=== PATIENT | female | born 1975 | race Hispanic/Latino ===

== ENCOUNTER 2016-12-28 06:03 | Day surgery (SDC) | payer OTHER ==
[~2016-12-28 06:03] MED LIST: MARCAINE 0.25% INFILTRATI ONE; PEPCID IV NR; VERSED IV NR
[2016-12-28] MEDS ORDERED: NACL BACTERIOSTATIC INFILTRATI ONE (06:39)
--- NOTE | 2016-12-28 06:58 | Anesthesia Day of Surgery ---
Anesthesia Day of Surgery - Day of Surgery Patient Examined: Yes Patient H&P Reviewed: Yes Patient is NPO: Yes
--- NOTE | 2016-12-28 06:58 | Anesthesia Consultation ---
Anesthesia Consult and Med Hx Date of service: 12/28/16 - Airway Anesthetic Teeth Evaluation: Partials ROM Head & Neck: Adequate Mental/Hyoid Distance: Adequate Mallampati Class: Class II Intubation Access Assessment: Probably Good - Pulmonary Exam CTA: Yes - Cardiac Exam Cardiac Exam: RRR - Pre-Operative Health Status ASA Pre-Surgery Classification: ASA2 Proposed Anesthetic Plan: General - Pulmonary Hx Smoking: No (denies) Hx Asthma: No COPD: No Hx Pneumonia: No - Cardiovascular System Hx Hypertension: No Hx Coronary Artery Disease: No Hx Heart Attack/AMI: No Hx Angina: No Hx Cardia Arrhythmia: No Hx Heart Murmur: No - Central Nervous System Hx Seizures: No CVA: No Hx Psychiatric Problems: Yes - Gastrointestinal Hx Gastroesophageal Reflux Disease: Yes (doesn't treat. reports this is why her teeth are so bad) - Endocrine Hx End Stage Renal Disease: No Hx Liver Disease: No Hx Non-Insulin Dependent Diabetes: No Hx Thyroid Disease: Yes (pt uncertain if over or under active. doesn't see a doctor) - Hematic Hx Anemia: Yes - Other Systems Hx Alcohol Use: Yes (occas) Hx Cancer: No
[2016-12-28] MEDS ORDERED: PERCOCET 5/325 PO PRN (07:00)
[2016-12-28] MEDS ORDERED: VERSED IV NR (07:00)
[2016-12-28] MEDS ORDERED: PEPCID IV NR (07:00)
[2016-12-28] MEDS ORDERED: ZOFRAN IV PRN (07:00)
[2016-12-28] MEDS: NACL 0.9% 1000 ML 1,000 ML IV SCH ×2 (07:18→09:46)
[2016-12-28] MEDS ORDERED: MARCAINE 0.25% INFILTRATI ONE ×2 (07:23→08:20)
[2016-12-28] MEDS ORDERED: SUBLIMAZE ONE (07:29)
[2016-12-28] MEDS ORDERED: DIPRIVAN 10 MG/ML IV ONE (07:29)
[2016-12-28] MEDS ORDERED: XYLOCAINE MPF 2% ONE (07:32)
[2016-12-28] MEDS ORDERED: ROBINUL ONE ×2 (07:33)
[2016-12-28] MEDS ORDERED: NEOSTIGMINE ONE (07:34)
[2016-12-28] MEDS ORDERED: DECADRON ONE (07:34)
[2016-12-28] MEDS ORDERED: TORADOL ONE (07:34)
[2016-12-28] MEDS ORDERED: ZOFRAN ONE (07:34)
--- NOTE | 2016-12-28 07:54 | Short Stay Summary ---
Short Stay Documentation Date of service: 12/28/16 Narrative H&P: C/O: Desires permanent sterilization 41-year-old presents for permanent sterilization Gyhx:None Medhx: Anxiety disorder, restless leg syndrome Sughx: No abdominal surgery Obhx: # 2 Meds:Xanax, gabapentin All:NKDA Fshx: Exam benign A: Acute situational anxiety regarding P: -Will proceed with laparoscopic bilateral tubal ligation -Patient has been consented - History Past Medical History: other (anxiety disorder) Past Surgical History: Other (Abscess drainage from buttocks) Social history: , full code, no smoking, no alcohol abuse - Allergies and Medications Current Medications: Allergies No Known Allergies Allergy (Unverified 12/20/16 15:09) Home Medications Medication Instructions Recorded Confirmed Last Taken Type ALPRAZolam [Alprazolam] 0.25 mg PO BID PRN 12/20/16 12/28/16 12/25/16 History Gabapentin [Gabapentin] 1 tab PO PRN PRN 12/20/16 12/28/16 12/26/16 History Methocarbamol [Methocarbamol] 1 tab PO PRN PRN 12/20/16 12/28/16 12/27/16 History Active Medications Famotidine (Pepcid) 20 mg IV PREOP NR Stop: 12/28/16 23:59 Last Admin: 12/28/16 07:23 Dose: 20 mg Hydromorphone HCl (Dilaudid) 0.5 mg IV Q10MIN PRN PRN Reason: Pain , Severe (7-10) Stop: 12/28/16 18:00 Sodium Chloride (Nacl 0.9% 1000 Ml) 1,000 mls @ 100 mls/hr IV DIRECT EDENILSON Last Admin: 12/28/16 07:18 Dose: 100 mls/hr Midazolam HCl (Versed) 2 mg IV PREOP NR Stop: 12/28/16 23:59 Last Admin: 12/28/16 07:51 Dose: 2 mg Ondansetron HCl (Zofran) 4 mg IV ONCE PRN PRN Reason: Nausea And Vomiting Stop: 12/28/16 18:00 Oxycodone/Acetaminophen (Percocet 5/325) 1 tab PO ONCE PRN PRN Reason: Pain, Moderate (4-6) Stop: 12/28/16 18:00 - Physical exam General appearance: no acute distress, well-nourished HEENT: Atraumatic, PERRLA Lungs: Clear to auscultation, Normal air movement Breasts: deferred Heart: Regular rate, Normal S1, Normal S2 Gastrointestinal: normal, normoactive bowel sounds, no tenderness, no distended , no masses, no guarding Extremities: no ischemia Neurological: Normal speech - Brief post op/procedure progress note Date of procedure: 12/28/16 Pre-op diagnosis: Desires permanent sterilization Post-op diagnosis: same Procedure: Bilateral laparoscopic tubal ligation Anesthesia: GETA Findings: Umbilicus scar suggesting prior surgery, thickened fascial layer, normal uterus and tubes bilaterally Surgeon: LAURIE CHOI Estimated blood loss: none Pathology: none Condition: stable - Hospital course Hospital course: Uncomplicated postop course - Disposition Condition at discharge: Good Disposition: DC-01 TO HOME OR SELFCARE Short Stay Discharge Plan Activity: advance as tolerated Weight Bearing Status: Weight Bear as Tolerated Diet: regular Wound: open to air Follow up with: LORENZA CASTILLO MD [Primary Care Provider] - 7 Days LAURIE CHOI MD [Staff Physician] - 7 Days Prescriptions: HYDROcodone/APAP 5-325 [[place] 5/325] 1 each PO Q6HR PRN #7 tablet PRN Reason: Pain Ibuprofen [Motrin 600 MG tab] 600 mg PO Q8H PRN #30 tablet PRN Reason: Pain
[2016-12-28] MEDS ORDERED: DILAUDID ONE (08:27)
[2016-12-28] MEDS ORDERED: BREVIBLOC IV ONE (08:45)
[2016-12-28] MEDS ORDERED: NEO SYNEPHRINE/NS Syringe(OR USE) IV ONE (09:00)
--- NOTE | 2016-12-28 09:14 | Operative Report ---
Operative Report Operative Report: DATE: 12/28/2016 PREOPERATIVE DIAGNOSIS: Desires permanent sterilization POSTOP DIAGNOSIS: As above NAME OF PROCEDURE: Laparoscopic bilateral tubal with fulguration SURGEON: LAURIE CHOI MD CONSTRUCTION CONTRACTOR: None ANESTHESIA: General EBL: Minimal PATHOLOGY SPECIMEN: None URINE OUTPUT: 100 mL FINDINGS: Normal uterus tubes and ovaries bilaterally, thickened fascia, umbilicus with scar suggestive of prior surgery DESCRIPTION OF PROCEDURE: After informed consent, patient was taken to the operating room where she was prepped and draped in a sterile fashion. She was placed in dorsolithotomy position then a correia catheter was placed without difficulty . Ziippi speculum speculum was placed in the patient's vagina and single-tooth was used to grab the anterior lip. A [employer] uterine manipulator was advanced into the patient's cervical os without difficulty. Attention was then turned to the patient's abdomen where 1/4 percent Marcaine was injected then a 1/2 cm incision was made in the umbilical fold. Towel clips were used to grab the umbilicus and this was elevated, varies needle was then advanced into the patient's abdomen carefully until 2 pops were felt. Water drop test confirmed intra-peritoneal placement then CO2 gas was used to obtain intra- abdominal insufflation. Attempt to obtain intra-abdominal placement with 5 mm trocar through the umbilicus was unsuccessful. Attention was then turned to the left upper quadrant where intra-abdominal entrance was obtained with direct visualization using Optiview. Patient's normal anatomy was visualized. Attention was then turned to the patient's suprapubic region where under direct visualization 5 mm trocar was advanced into the patient's abdomen without difficulty. Tubes were then grasped serially serially and cauterized in bipolar, 3 cm segment in each tube was fulgurised. All instruments were then withdrawn from the patient's abdomen under direct visualization and then the skin was closed in a subcuticular manner with 4-0 Monocryl. Instrument counts were correct 2; she tolerated the procedure well and was transferred the PACU in stable condition thank you
[2016-12-28] MEDS: DILAUDID IV PRN ×3 (09:20→09:40)
--- NOTE | 2016-12-28 10:32 | Post Anesthesia Evaluation ---
- Post Anesthesia Evaluation Patient Participated: Yes Airway Patent: Yes Stable Respiratory Function: Yes Nausea/Vomiting: No Temp > 96.8F: Yes Pain Manageable: Yes Adequeate Hydration: Yes Anesthesia Complications: No Block Receding Appropriately: Not Applicable Patient on Ventilator: No
[2016-12-28 11:35] VITALS: BP 106/76
== END 2016-12-28 11:25 | disposition home or self-care (01) ==
LOC: OR 06:03
PROVIDERS: ATTEND Obstetrics & Gynecology Gynecology
DX: Z30.2 Encounter for sterilization (principal); F41.8 Other specified anxiety disorders; K21.9 Gastro-esophageal reflux disease without esophagitis; Z79.899 Other long term (current) drug therapy
CPT/HCPCS: 58670; 81025; 86850; 86900; 86901; J1100; J1170; J1885; J2250; J2370; J2405; J2704; J2710; J3010; J7030; 75630

== ENCOUNTER 2017-04-10 22:40 | Emergency (ER) | payer OTHER ==
[2017-04-11 00:21] VITALS: BP 126/86
[2017-04-11] MEDS ORDERED: CLEOCIN IM ONE (03:46)
[2017-04-11] MEDS ORDERED: MOTRIN PO ONE (03:46)
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
== END 2017-04-11 05:18 | disposition home or self-care (01) ==
LOC: ED 22:40
DX: S81.811D Laceration without foreign body, right lower leg, subsequent encounter (principal); W26.8XXD Contact with other sharp object(s), not elsewhere classified, subsequent encounter
CPT/HCPCS: 96372; 99282

== ENCOUNTER 2018-08-05 11:48 | Emergency (ER) | payer OTHER ==
[2018-08-05] MEDS ORDERED: GEODON IM ONE ×2 (12:00→12:13)
[2018-08-05] MEDS ORDERED: NACL 0.9% 1000 ML 1,000 ML IV ONE (12:20)
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
[2018-08-05 12:45] LABS: Basophils % (Auto) 0.3 % (0.0-1.8); Hematocrit 42.1 % (30.3-42.9); Hemoglobin 14.6 gm/dl (10.1-14.3); Lymphocytes # (Auto) 0.7 K/mm3 (1.2-5.4); Lymphocytes % (Auto) 5.2 % (13.4-35.0); Mean Corpuscular HGB Conc 35 % (30-34); Mean Corpuscular Volume 88 fl (79-97); Monocytes # (Auto) 0.8 K/mm3 (0.0-0.8); Monocytes % (Auto) 5.7 % (0.0-7.3); Platelet Count 310 K/mm3 (140-440); Red Blood Count 4.76 M/mm3 (3.65-5.03); Red Cell Distribution Width 13.4 % (13.2-15.2)
[2018-08-05 13:04] LABS: Alanine Aminotransferase 37 units/L (7-56); BUN/Creatinine Ratio 15; Bilirubin,Direct 0.2 mg/dL (0-0.2); Blood Urea Nitrogen 20 mg/dL (7-17); Calcium 9.7 mg/dL (8.4-10.2); Hemolysis Index 4
[2018-08-05 14:19] LABS: Bacteria,Urine 1+ /HPF (Negative); Bilirubin,Urine MOD (Negative); Blood,Urine NEG (Negative); Color,Urine Yellow (Yellow); Mucus,Urine FEW /HPF; Urobilinogen,Urine < 2.0 mg/dL (<2.0)
[2018-08-05 14:28] LABS: Amphetamine Screen,Urine PRESUMPTIVE NEGATIVE; Benzodiazepines Screen,Urine PRESUMPTIVE NEGATIVE; Cannabinoid Screen,Urine PRESUMPTIVE NEGATIVE; Cocaine Screen,Urine PRESUMPTIVE NEGATIVE; Opiate Screen,Urine PRESUMPTIVE NEGATIVE
[2018-08-05 14:34] LABS: Ictotest,Urine Negative (Negative)
[2018-08-05 14:40] LABS: Methadone Screen,Urine PRESUMPTIVE POSITIVE
[2018-08-05] MEDS ORDERED: ATIVAN IM ONE (16:54)
[2018-08-05] MEDS ORDERED: NEURONTIN PO PRN (17:20)
[2018-08-05] MEDS: XANAX PO PRN (23:50)
[2018-08-06] MEDS ORDERED: XANAX PO ONE (07:29)
[2018-08-06] MEDS: XANAX PO PRN ×2 (12:53→15:22)
[2018-08-06] MEDS ORDERED: ATIVAN PO ONE (15:32)
[2018-08-06] MEDS ORDERED: ATIVAN ONE (18:25)
--- NOTE | 2018-08-06 18:38 | Consultation ---
History of Present Illness - Reason for Consult Reason for consult: psych consult - Chief Complaint Chief complaint: CC: "mood and anxiety" 43 yo HF with prior history of an anxiety disorder presents to [facility] with increased panic attacks. Patient notes that she has struggled with several psychosocial stressors in her life that have precipitated a worsening in her an xiety. She notes that it led to her getting worse over the weekend where she noticed her panic attacks getting more frequent and intense. She notes that she had resulting anxiety throughout the weekend where she couldn't sleep for several days. She decided to come to the hospital to help get treatment after becoming highly physically agitated. She notes no SI/HI/AH/VH. She is depressed, but this comes from her life stressors. She's had similar experiences in the past where she's been hosp italized and benefitted from medications that she hasn't taken in several days. Because of this, she current presents in a hysterical fashion. She is easily upset and is psychomotor agitated. She denies this being related to her no longer taking some anxiety medications or via any illicit drug use. She denies any psychosis or med. No AH or VH. She has no grandiosity or euphoria. She is currently wearing a face mask, but notes that she recently lost all her teeth and finds it degrading; thereofore, she is covering it up with the mask. No withdrawal symptoms noted by the patient. She denies any delusions. Medications and Allergies Allergies Allergy/AdvReac Type Severity Reaction Status Date / Time No Known Allergies Allergy Unverified 12/20/16 15:09 Home Medications Medication Instructions Recorded Confirmed Last Taken Type ALPRAZolam [Alprazolam] 0.25 mg PO BID PRN 12/20/16 08/05/18 12/25/16 History Gabapentin 1 tab PO PRN PRN 12/20/16 08/05/18 12/26/16 History Methocarbamol 1 tab PO PRN PRN 12/20/16 08/05/18 12/27/16 History Acetaminophen/Codeine [Tylenol 1 tab PO Q6H PRN #10 tab 04/11/17 08/05/18 Unknown Rx /Codeine # 3 tab] Active Meds: Active Medications Alprazolam (Xanax) 0.25 mg PO BID PRN PRN Reason: Anxiety Last Admin: 08/06/18 15:22 Dose: 0.25 mg Documented by: Gabapentin (Neurontin) 100 mg PO TID PRN PRN Reason: Pain Last Admin: 08/06/18 07:45 Dose: 100 mg Documented by: Past psychiatric history - Past Medical History Past Surgical History: No surgical history - past Psychiatric treatment and history psychiatric treatment history: Inpt: was at [place]- last unknown, was for similar situation related to depression and anxiety triggered by divorce, was helpful- given xanax/celexa outpt: none no Suicide attempt history prior psych meds: xanax, celexa Allergies: nkda Family psych history: none Substance hx: patient denies any illicit drug use, +etoh- "I dont do drunk", she notes that she drinking 1-2x per week and doesn't get drunk. Currently denies any opiate use, despite testing positive for methadone. No DUI, began drinking at age 40. - Social History Social history: other (lives at home, 5 yrs ago with the divorce finalized 3 months ago, 2 grown children, +work at [employer]) Mental Status Exam - Vital signs Last Vital Signs Temp 99.1 F 08/06/18 07:59 Pulse 111 H 08/06/18 07:59 Resp 22 08/06/18 07:59 BP 137/86 08/06/18 07:59 Pulse Ox 98 08/06/18 07:59 - Exam Orientation: time, place, person Affect: depressed, anxious Mood: congruent with affect Thought Process: Goal Oriented Perceptions: none Speech: pressured Concentration: distractible, unable to pay attention Motor activity: restless Level of consciousness: alert Memory: Intact Interaction: irritable (knew Cheng as president and then Lamberto, spelled WORLD backwords correctly, AAO x 3) Mini mental status exam(if necessary): 24-30 Results Result Diagrams: 08/05/18 12:28 08/05/18 12:28 All other labs normal. Assessment and Plan Assessment and plan: 43 yo HF with prior history of an anxiety disorder presents to [facility] with increased panic attacks since last week. Patient is preoccupied with external matters right now. She notes that she is depression and anxious. Several stressors include poor finances and her poor relationship with her ex. She seems that she is having anxiety mixed in with panic attacks. She denies any SI/HI/AH/VH despite some depression from her situation. The anxiety is debilitating to where she can no longer drive or adequately focus on herself. DX: MDD- rec mod, PTSD, opiate abuse- eval for A/P Anxiety and psychomotor agitated- will use celexa for long acting control of the anxiety and her mood. short term use- klonopin small dose for possible withdrawal symptoms. Side effects, risk, benenfits, disussed for celexa including black box warning. Depression- use celexa 10mg po daily and focus on proper coping skills. Dispo- will look at outpatient providers
[2018-08-06] MEDS: celeXA PO SCH (21:29)
[2018-08-07] MEDS: XANAX PO PRN (04:12)
[2018-08-07] MEDS: celeXA PO SCH (10:20)
--- NOTE | 2018-08-07 13:17 | Progress Note ---
Subjective - Reason for Consult Consult date: 08/07/18 Reason for consult: Psychiatry Follow-up - Chief Complaint Chief complaint: "I am doing better" 43 y.o. female who presented to the ER for possible panic attack. Today the patient was cooperative, but somewhat anxious during the assessment. She calmed down after she was told why I was talking with her. She stated that she was feeling better today. She stated that she has gotten some of her stressors handled. She stated that she does not have a psychiatrist and would like a referral once discharged. Per the notes, no behavioral disturbances overnight. She denies SI/HI's and AVH's. She denies any side effects of her medications. Mental Status Exam - Vital signs Last Vital Signs Temp 98.9 F 08/07/18 08:09 Pulse 99 H 08/07/18 08:09 Resp 18 08/07/18 08:09 BP 128/91 08/07/18 08:09 Pulse Ox 99 08/07/18 08:09 - Exam Narrative exam: MSE: Appearance: cooperative Behavior: regular eye contact Speech: regular rate and tone Mood: somewhat anxious" Affect: congruent to mood Thought Process: linear l Thought Content: denies SI/HI's and AVH's Motor Activity: ambulatory Cognition: A/O x3 Insight: fair Judgment: fair Assessment and Plan Impression: No overt psychosis seen in the patient. MDD. Unspecified Anxiety DO. Today the patient was cooperative, but somewhat anxious during the assessment. DDx: R/O Bipolar DO Recommendation/Plan: Rescind 1013. Continue Celexa 10 mg PO daily for depression/anxiety and Xanax 0.25 mg PO BID PRN for acute anxiety. Discussed possible suicidality/medication induced med with the patient reference Celexa, she verbalized understanding.Discussed the important to abstain from excessive alcohol Dispo: The patient was accepted at [facility] staff with Dr Natividad Davenport.
[2018-08-07 13:51] VITALS: BP 142/90
== END 2018-08-07 13:50 | disposition home or self-care (01) ==
LOC: ED 11:48 → EEVIPCON 11:48 → ED 08-07 13:50
DX: F29 Unspecified psychosis not due to a substance or known physiological condition (principal); F41.9 Anxiety disorder, unspecified; K21.9 Gastro-esophageal reflux disease without esophagitis; G43.909 Migraine, unspecified, not intractable, without status migrainosus
CPT/HCPCS: 36415; 80048; 80076; 80307; 81001; 84484; 84703; 85025; 93005; 93010; G0480; J2060; J3486; J7030; 80320; 96360; 96361; 96372

== ENCOUNTER 2020-11-03 23:17 | Emergency (ER) | payer OTHER ==
[2020-11-03 23:29] VITALS: BP 173/103
--- NOTE | 2020-11-03 23:36 | Event Note ---
ED Screening Note Date of service: 11/03/20 Time: 23:35 ED Screening Note: 45-year-old female patient presents to the emergency department with complaints of epigastric abdominal pain and diarrhea starting 2 days ago. No history of similar symptoms. No known sick contacts. No current steroid or antibiotic use. Patient took Tylenol 3 earlier today with limited relief. No history of prior abdominal surgeries. Hypertensive in triage. General: Awake, appropriately interactive. Appears uncomfortable. Neck: Supple. Full range of motion intact. Cardiovascular: Normal peripheral perfusion. Pulmonary: No respiratory distress. Patient is speaking normally without use of accessory muscles. Abdomen: Soft, nondistended. RUQ and epigastric tenderness. Skin: No apparent rashes or lesions. Neurological: No facial asymmetry. Speech is clear. Follows commands. Patient is alert and oriented. Musculoskeletal: Moves all four extremities spontaneously with normal range of motion. Psych: Cooperative. Appropriate mood and affect. I have greeted and performed a focused rapid initial assessment of this patient. A comprehensive ED assessment and evaluation of the patient, analysis of all test results, and completion of the medical decision-making process will be conducted by additional ED providers. This initial assessment/diagnostic orders/clinical plan/treatment(s) is/are subject to change based on patients health status, clinical progression and re-assessment. Further treatment and workup at subsequent clinical provider's discretion. Patient/guardian urged not to elope from the ED as their condition may be serious if not clinically assessed and managed.
[2020-11-04] MEDS ORDERED: ONDANSETRON 4 MG/2 ML INJ IV ONE
[2020-11-04] MEDS ORDERED: HYDROmorphone 1 MG/1 ML INJ IV ONE
--- NOTE | 2020-11-04 00:01 | Emergency Department Report ---
ED Abdominal Pain HPI - General Chief Complaint: Abdominal Pain Stated Complaint: ABD PAIN PUI?: No Time Seen by Provider: 11/03/20 23:56 Source: patient Mode of arrival: Ambulatory Limitations: No Limitations - History of Present Illness Initial Comments: Patient is a 45-year-old female who presents emergency room with complaints of abdominal pain. Patient states the pain in her epigastric region and right lower quadrant. Patient states that the epigastric is worse than the right lower quadrant. Patient states her symptoms started yesterday. Patient dates her symptoms worsen. Patient denies nausea and vomiting. Patient denies fever and chills. Patient states that her pain is worse with eating and movement. Patient states her pain is better with rest. Patient dates she has a history of acid reflux but is not on any medications. Patient denies alcohol use. Patient states she eats spicy food. Patient states her last menstrual menstrual period is unknown. Patient states that she is a . Patient denies surgical history. Patient states she is vaccinated against COVID-19. Patient complains of diarrhea. Patient denies blood in her stool. Patient denies recent travel. Patient denies recent international travel. Patient denies exposure to the novel coronavirus. Patient denies sick contacts. Patient denies fever and chills. Patient denies cough. Patient denies coming in contact with anybody with symptoms of the novel coronavirus. MD Complaint: abdominal pain -: Sudden Location: RLQ, epigastric Radiation: none Migration to: no migration Severity: severe Severity scale (0 -10): 10 Consistency: constant Improves With: rest Worsens With: eating, movement Associated Symptoms: diarrhea. denies: nausea, vomiting, fever, chills, constipation, dysuria, hematemesis, hematochezia, melena, hematuria, anorexia, s yncope - Related Data LMP (females 10-50): unknown Home Medications Medication Instructions Recorded Confirmed Last Taken ALPRAZolam [Alprazolam] 0.25 mg PO BID PRN 12/20/16 08/05/18 12/25/16 Gabapentin 1 tab PO PRN PRN 12/20/16 08/05/18 12/26/16 methocarbamoL [Methocarbamol] 1 tab PO PRN PRN 12/20/16 08/05/18 12/27/16 Previous Rx's Medication Instructions Recorded Last Taken Type Acetaminophen/Codeine [Tylenol 1 tab PO Q6H PRN #10 tab 04/11/17 Unknown Rx /Codeine # 3 tab] Ibuprofen [Motrin] 800 mg PO Q8HR PRN #30 tablet 09/23/18 Unknown Rx hydrOXYzine PAMOATE [Vistaril] 50 mg PO Q6HR PRN #14 capsule 09/23/18 Unknown Rx Esomeprazole Magnesium [NexIUM] 40 mg PO QDAY 30 Days #30 11/04/20 Unknown Rx capsule. Ondansetron [Zofran Odt] 4 mg PO Q6HR PRN #20 tab.rapdis 11/04/20 Unknown Rx traMADoL [Ultram 50 MG tab] 50 mg PO Q6HR PRN #10 tablet 11/04/20 Unknown Rx Allergies Allergy/AdvReac Type Severity Reaction Status Date / Time No Known Allergies Allergy Unverified 12/20/16 15:09 ED Review of Systems ROS: Stated complaint: ABD PAIN Other details as noted in HPI Constitutional: denies: chills, fever Eyes: denies: eye pain, eye discharge, vision change ENT: denies: ear pain, throat pain Respiratory: denies: cough, shortness of breath, wheezing Cardiovascular: denies: chest pain, palpitations Endocrine: no symptoms reported Gastrointestinal: abdominal pain, diarrhea. denies: nausea, vomiting Genitourinary: denies: urgency, dysuria, discharge Musculoskeletal: denies: back pain, joint swelling, arthralgia Skin: denies: rash, lesions Neurological: denies: headache, weakness, paresthesias Psychiatric: denies: anxiety, depression Hematological/Lymphatic: denies: easy bleeding, easy bruising ED Past Medical Hx - Past Medical History Previous Medical History?: Yes Hx Hypertension: No Hx Heart Attack/AMI: No Hx Congestive Heart Failure: No Hx Diabetes: No Hx GERD: Yes Hx Liver Disease: No Hx Arthritis: Yes (back) Hx Headaches / Migraines: Yes (migraines) Hx Seizures: No Hx Psychiatric Treatment: Yes (Anxiety, Panic attack) Hx Asthma: No Hx COPD: No Hx HIV: No - Surgical History Past Surgical History?: Yes Additional Surgical History: ankle - Family History Family history: no significant - Social History Smoking Status: Never Smoker Substance Use Type: None - Medications Home Medications: Home Medications Medication Instructions Recorded Confirmed Last Taken Type ALPRAZolam [Alprazolam] 0.25 mg PO BID PRN 12/20/16 08/05/18 12/25/16 History Gabapentin 1 tab PO PRN PRN 12/20/16 08/05/18 12/26/16 History methocarbamoL [Methocarbamol] 1 tab PO PRN PRN 12/20/16 08/05/18 12/27/16 History Acetaminophen/Codeine [Tylenol 1 tab PO Q6H PRN #10 tab 04/11/17 08/05/18 Unknown Rx /Codeine # 3 tab] Ibuprofen [Motrin] 800 mg PO Q8HR PRN #30 tablet 09/23/18 Unknown Rx hydrOXYzine PAMOATE [Vistaril] 50 mg PO Q6HR PRN #14 capsule 09/23/18 Unknown Rx Esomeprazole Magnesium [NexIUM] 40 mg PO QDAY 30 Days #30 11/04/20 Unknown Rx capsule. Ondansetron [Zofran Odt] 4 mg PO Q6HR PRN #20 tab.rapdis 11/04/20 Unknown Rx traMADoL [Ultram 50 MG tab] 50 mg PO Q6HR PRN #10 tablet 11/04/20 Unknown Rx ED Physical Exam - General Limitations: No Limitations General appearance: alert, in no apparent distress - Head Head exam: Present: atraumatic, normocephalic - Eye Eye exam: Present: normal appearance - ENT ENT exam: Present: mucous membranes moist - Neck Neck exam: Present: normal inspection - Respiratory Respiratory exam: Present: normal lung sounds bilaterally. Absent: respiratory distress - Cardiovascular Cardiovascular Exam: Present: regular rate, normal rhythm. Absent: systolic murmur, diastolic murmur, rubs, gallop - GI/Abdominal GI/Abdominal exam: Present: soft, tenderness (Epigastric tenderness and right lower quadrant tenderness to palpation.), normal bowel sounds - Extremities Exam Extremities exam: Present: normal inspection - Back Exam Back exam: Present: normal inspection - Neurological Exam Neurological exam: Present: alert, oriented X3 - Psychiatric Psychiatric exam: Present: normal affect, normal mood - Skin Skin exam: Present: warm, dry, intact, normal color. Absent: rash ED Course Vital Signs 11/03/20 23:25 Temperature 97.7 F Pulse Rate 85 Respiratory 22 Rate Blood Pressure 173/103 [Right] O2 Sat by Pulse 100 Oximetry - Reevaluation(s) Reevaluation #1: Patient states her pain is better. 11/04/20 01:01 Reevaluation #2: I discussed all results and clinical findings with patient. I discussed plan of care with patient. Patient agrees with plan of care. Patient is stable for discharge. Patient will be discharged home. Patient given discharge instructions. Patient voiced understanding of discharge instructions. I discussed the CT results directly with patient. Patient voiced understanding of the lung nodule. I told the patient to follow-up with her primary care to monitor and have repeat CTs for her lung nodule. 11/04/20 01:59 ED Medical Decision Making - Lab Data Result diagrams: 11/03/20 23:44 11/03/20 23:44 - Radiology Data Radiology results: report reviewed, image reviewed CT ABDOMEN AND PELVIS WITH IV CONTRAST INDICATION: Epigastric and R.L.Q. abdominnal pain. COMPARISON: None available. TECHNIQUE: All CT scans at this facility use dose modulation, automated exposure control, iterative reconstruction or weight based dosing, when appropriate, to reduce radiation dose to as low as reasonably achievable. FINDINGS: Lung Bases: There is a 4 mm nodule in the lateral right lower lobe on axial image 7. There is a second posterior medial right lower lobe nodule which measures 4 mm. Skeletal System: No acute abnormality. ABDOMEN: Liver: No significant abnormality. Gallbladder: Removed. Bile Ducts: Mild intrahepatic biliary dilatation may be due to prior cholecystectomy. Pancreas: No significant abnormality. Spleen: No significant abnormality. Adrenals: No significant abnormality. Right Kidney: Right kidney is slightly smaller than the left and there is mild right renal cortical thinning. There are a few punctate stones. No acute finding. Left Kidney: No significant abnormality. Upper GI tract: No significant abnormality. Lymph Nodes: No significant adenopathy. Aorta: No significant abnormality. Additional Findings: No significant abnormality. PELVIS: Colon: No acute abnormality. Urinary Bladder and Distal Ureters: No significant abnormality. Appendix: No significant abnormality. Lymph Nodes: No significant adenopathy. Additional Findings: None. IMPRESSION: 1. No acute process in the abdomen or pelvis. 2. Incidental findings, as above. 3. Multiple incidental pulmonary nodule(s) in the right lower lobe measuring 3- 4 mm with solid characteristics. - Recommendation according to Fleischner Society 2017 Guidelines: Low Risk Patient: No routine follow-up; High Risk Patient: Optional CT at 12 months. - Medical Decision Making Patient is a 45-year-old female who presents emergency room with complaints of abdominal pain and diarrhea. Patient states her pain started yesterday. Patient states her pain is worsening. Patient brought in by EMS. Patient had IV started by EMS. Patient given IV fluids by EMS. Patient completed a liter. Patient given Dilaudid and Zofran in the ER and her symptoms improved. Patient had labs done which were essentially markable for dehydration. Patient had normal WBC. Patient was not . Patient had a CT scan of the abdomen which was negative for acute findings in the abdominal region. Patient had incidental findings of a pulmonary nodule. Patient is not require any further emergency medical services. Patient will be discharged home with antiemetics and pain meds. Patient instructed to eat a brat diet. Patient does not require inpatient services. Patient stable for discharge. Patient discharged home. - Differential Diagnosis Gastroenteritis , appendicitis, diarrhea, acid reflux, ABD pain, Critical care attestation.: If time is entered above; I have spent that time in minutes in the direct care of this critically ill patient, excluding procedure time. ED Disposition Clinical Impression: Gastroenteritis, Epigastric pain Abdominal pain Qualifiers: Abdominal location: right lower quadrant Qualified Code(s): R10.31 - Right lower quadrant pain Diarrhea Qualifiers: Diarrhea type: unspecified type Qualified Code(s): R19.7 - Diarrhea, unspecified Gastritis Qualifiers: Gastritis type: unspecified gastritis Chronicity: acute Gastritis bleeding: without bleeding Qualified Code(s): K29.00 - Acute gastritis without bleeding Disposition: 01 HOME / SELF CARE / HOMELESS Is pt being admited?: No Does the pt Need Aspirin: No Condition: Stable Instructions: Gastritis, Adult, [id number], Viral Gastroenteritis, Adult, Abdominal Pain, Adult, Food Choices to Help Relieve Diarrhea, Adult, Diarrhea, Adult, [id number], Probiotics, Abdominal Pain (ED) Additional Instructions: Patient to follow-up with primary care in 2 to 3 days. Patient to follow-up with gastroenterology in 2 to 3 days. Patient to rest. Patient to increase water. Patient to eat a brat diet. Patient to eat a GERD diet.. Patient to take Tylenol as needed for pain. Patient to take meds as directed. Patient to return to the ER if condition worsens, changes or new symptoms arise. Prescriptions: Esomeprazole Magnesium [NexIUM] 40 mg PO QDAY 30 Days #30 capsule.dr traMADoL [Ultram 50 MG tab] 50 mg PO Q6HR PRN #10 tablet PRN Reason: Pain , Severe (7-10) Ondansetron [Zofran Odt] 4 mg PO Q6HR PRN #20 tab.rapdis PRN Reason: Nausea And Vomiting Referrals: SHAW ZIEGLER MD [Staff Physician] - 2-3 Days JOHN MCNAIR MD [Staff Physician] - 2-3 Days Time of Disposition: 02:04
[2020-11-04 00:40] LABS: Eosinophils # (Auto) 0.1 K/mm3 (0.0-0.4); Eosinophils % (Auto) 2.6 % (0.0-4.3); Hematocrit 36.2 % (30.3-42.9); Hemoglobin 12.5 gm/dl (10.1-14.3); Lymphocytes # (Auto) 1.2 K/mm3 (1.2-5.4); Lymphocytes % (Auto) 29.6 % (13.4-35.0); Mean Corpuscular HGB Conc 35 % (30-34); Mean Corpuscular Volume 89 fl (79-97); Monocytes # (Auto) 0.4 K/mm3 (0.0-0.8); Monocytes % (Auto) 9.4 % (0.0-7.3); Platelet Count 172 K/mm3 (140-440); Red Blood Count 4.05 M/mm3 (3.65-5.03); Red Cell Distribution Width 14.6 % (13.2-15.2)
[2020-11-04 00:46] LABS: Alanine Aminotransferase 19 units/L (7-56); Albumin 4.1 g/dL (3.9-5); Blood Urea Nitrogen 12 mg/dL (7-17); Calcium 8.2 mg/dL (8.4-10.2); Hemolysis Index 2
[2020-11-04 00:47] LABS: BUN/Creatinine Ratio 17
--- NOTE | 2020-11-04 01:21 | Cat Scan Report ---
CT ABDOMEN AND PELVIS WITH IV CONTRAST INDICATION: Epigastric and R.L.Q. abdominnal pain. COMPARISON: None available. TECHNIQUE: All CT scans at this facility use dose modulation, automated exposure control, iterative reconstructi on or weight based dosing, when appropriate, to reduce radiation dose to as low as reasonably achieva ble. FINDINGS: Lung Bases: There is a 4 mm nodule in the lateral right lower lobe on axial image 7. There is a secon d posterior medial right lower lobe nodule which measures 4 mm. Skeletal System: No acute abnormality. ABDOMEN: Liver: No significant abnormality. Gallbladder: Removed. Bile Ducts: Mild intrahepatic biliary dilatation may be due to prior cholecystectomy. Pancreas: No significant abnormality. Spleen: No significant abnormality. Adrenals: No significant abnormality. Right Kidney: Right kidney is slightly smaller than the left and there is mild right renal cortical t hinning. There are a few punctate stones. No acute finding. Left Kidney: No significant abnormality. Upper GI tract: No significant abnormality. Lymph Nodes: No significant adenopathy. Aorta: No significant abnormality. Additional Findings: No significant abnormality. PELVIS: Colon: No acute abnormality. Urinary Bladder and Distal Ureters: No significant abnormality. Appendix: No significant abnormality. Lymph Nodes: No significant adenopathy. Additional Findings: None. IMPRESSION: 1. No acute process in the abdomen or pelvis. 2. Incidental findings, as above. 3. Multiple incidental pulmonary nodule(s) in the right lower lobe measuring 3-4 mm with solid charac teristics. - Recommendation according to Fleischner Society 2017 Guidelines: Low Risk Patient: No routine follow -up; High Risk Patient: Optional CT at 12 months. Signer Name: King Connell MD Signed: 11/04/2020 1:17 AM Workstation Name: [email or web address]
== END 2020-11-04 02:20 | disposition home or self-care (01) ==
LOC: ED 23:17
DX: K29.00 Acute gastritis without bleeding (principal); K52.9 Noninfective gastroenteritis and colitis, unspecified; R10.13 Epigastric pain; R10.31 Right lower quadrant pain; K21.9 Gastro-esophageal reflux disease without esophagitis; M19.90 Unspecified osteoarthritis, unspecified site; G43.909 Migraine, unspecified, not intractable, without status migrainosus; F41.8 Other specified anxiety disorders; Z98.890 Other specified postprocedural states
CPT/HCPCS: 36415; 74177; 80053; 83690; 83735; 84703; 85025; 96374; 96375; 99284; J1170; J2405; Q9967